=== PATIENT | male | born 1955 | race Caucasian/White ===

== ENCOUNTER 2017-10-24 14:47 | Observation (INO) | payer BC, SELFPAY ==
[2017-10-24 15:25] LABS: #Basophils 0.1 thou/uL (0.0-0.2); #Eosinphils 0.1 thou/uL (0.0-0.7); #Lymphocytes 2.6 thou/uL (1.20-3.40); #Monocytes 0.6 thou/uL (0.11-0.59); #Neutrophils 6.6 thou/uL (1.40-6.50); %Basophils 0.7 % (0.0-1.0); %Eosinophils 1.4 % (0.0-10.0); %Lymphocytes 25.9 % (21.0-51.0); Mean Corpuscular HGB CONC 35.6 g/dL (32.0-36.0); Mean Corpuscular Hemoglobin 32.4 pg (27.0-31.0); Mean Platelet Volume 7.1 fL (7.4-10.4); Platelet Count 202 thou/uL (130-400); RBC Distribution Width 11.3 % (11.5-14.5); Red Blood Cell (RBC) Count 4.93 mill/uL (4.70-6.10); White Blood Cell (WBC) Count 9.9 thou/uL (4.8-10.8)
--- NOTE | 2017-10-24 15:47 | CT ---
CT OF THE BRAIN WITHOUT CONTRAST: Date: 10/24/17 COMPARISON: None. HISTORY: Left-sided tingling and numbness that began 1 week ago. Altered mental status. TECHNIQUE: Multiple contiguous axial images were obtained in a CT of the brain without contrast. FINDINGS: The brain is normal in morphology and attenuation without focal lesions or confluent areas of infarct ion. There is no evidence of hydrocephalus, intracranial hemorrhage, or extra-axial fluid collection. The calvarium and overlying soft tissues are unremarkable. The visualized paranasal sinuses and masto id air cells are well aerated. IMPRESSION: No evidence of acute intracranial abnormality. POS: [facility]
[2017-10-24 15:49] LABS: ALT (SGPT) 16 U/L (8-55); AST (SGOT) 14 U/L (5-34); Albumin 4.7 g/dL (3.4-4.8); Alkaline Phosphatase 71 U/L (40-150); Anion Gap 15 mmol/L (10-20); BUN (Urea Nitrogen) 13 mg/dL (8.4-25.7); Bilirubin, Total 0.3 mg/dL (0.2-1.2); Calc. Creatinine Clearance 0 mL/min (70-130); Calcium 9.5 mg/dL (7.8-10.44); Carbon Dioxide 23 mmol/L (23-31); Chloride 106 mmol/L (98-107); Estimated GFR-MDRD 80; Globulin 2.8 g/dL (2.4-3.5); Glucose 121 mg/dL (80-115); Potassium 4.2 mmol/L (3.5-5.1); Protein, Total 7.5 g/dL (5.8-8.1); Sodium 140 mmol/L (136-145)
--- NOTE | 2017-10-24 15:49 | RAD ---
SINGLE VIEW OF THE CHEST: COMPARISON: None. HISTORY: Altered mental status. FINDINGS: Two views of the chest show normal sized cardiomediastinal silhouette. There is no evidence of consol idation, mass, or pleural effusion. The bones are unremarkable. IMPRESSION: No evidence of acute cardiopulmonary disease. POS: [facility]
[2017-10-24 15:53] LABS: CKMB 1.2 ng/mL (0-6.6); Troponin I Less than 0.010 ng/mL (< 0.028)
[2017-10-24 16:00] LABS: Bilirubin Negative (Negative); Blood, Urine Negative (Negative); Clarity CLEAR (Clear); Glucose, Urine (Dipstick) Negative (Negative); Leukocyte Negative (Negative); Nitrite Negative (Negative); Protein, Urine (Dipstick) Trace mg/dL (Neg-Trace); Specific Gravity, Urine 1.016 (1.002-1.036); Urobilinogen 0.2 mg/dL (0.2-1.0); pH, Urine 5.5 (5.0-9.0)
[2017-10-24 20:05] VITALS: BMI 28.9
--- NOTE | 2017-10-24 23:38 | ULT ---
BILATERAL CAROTID DUPLEX ULTRASOUND WITH SPECTRAL ANALYSIS AND COLOR FLOW EVALUATION 10/24/17 HISTORY: Left sided numbness, TIA. FINDINGS: Thompson scale, color flow, doppler evaluation, with spectral analysis of the bilateral carotid arteries is performed with 2D imaging. No significant atherosclerotic plaque is seen within the bilateral inte rnal carotid arteries, but there is mild intimal thickening in the common carotid arteries bilaterall y. There is less than 50% maximal stenosis in the bilateral internal carotid arteries according to the p eak systolic velocities in the ICA/CCA ratios. Peak systolic velocity in the right ICA is 81.3 cm/s w ith an ICA/CCA ratio of 0.67. Peak systolic velocity in the left ICA is 85.2 cm/s with an ICA/CCA rat io of 0.57. Antegrade flow is demonstrated in the vertebral arteries bilaterally. IMPRESSION: No hemodynamically significant stenosis in the bilateral internal carotid arteries. POS: [facility]
[2017-10-24] MEDS ORDERED: Acetaminophen 325 MG TAB PO SCH (23:59)
[2017-10-25] MEDS ORDERED: Acetaminophen 325 MG TAB PO PRN (01:15)
[2017-10-25] MEDS ORDERED: Dextrose 5% in Water 1,000 ML IV PRN (03:52)
[2017-10-25] MEDS ORDERED: HumaLOG 300 UNITS/3 ML VIAL SC PRN (03:52)
[2017-10-25] MEDS ORDERED: Dextrose 50% Abboject 50 ML SYRINGE SLOW IVP PRN (03:52)
[2017-10-25] MEDS ORDERED: Ondansetron HCl/PF 4 MG/2 ML Vial IVP PRN (03:54)
--- NOTE | 2017-10-25 04:43 | HP ---
CODE STATUS: FULL CODE. PRIMARY CARE PHYSICIAN: Dr. Granado. CHIEF COMPLAINT: Left-sided weakness. HISTORY OF PRESENT ILLNESS: This is a 62-year-old male patient. Patient has past medical history of diabetes type 2, hyperlipidemia, hypertension. Patient came to the hospital after having symptoms f or about 1 week. Symptoms have been on and off and has been reported as having weakness and tingling of the left sided. Patient reported that symptoms are triggered when he does any activity and impro ernesto when he is rest. He has also noticed that the symptoms are present when the blood pressure goes very high. Symptoms are reported as moderate. REVIEW OF SYSTEMS: Constitutional: No fever, no chills. Generalized weakness. Respiratory: No co ugh, no sputum production, or shortness of breath. Cardiovascular: No chest pain, palpitation, or s hortness of breath. Gastrointestinal: No nausea, vomiting, diarrhea, or abdominal pain. CAR GROOMER: No d izziness or headache. Patient has left-sided tingling, numbness. Genitourinary: No burning on urin ation. Extremities: No leg swelling. All other systems were reviewed and negative except for the f indings as mentioned above. PAST MEDICAL HISTORY: Hypertension, diabetes, and high cholesterol. PAST SURGICAL HISTORY: Appendectomy. PSYCHIATRIC HISTORY: No previous psychiatric history. SOCIAL HISTORY: Patient lives with . Patient drinks every day, less than 5 drinks per day. DRUG ALLERGIES: No known drug allergies. REPORTED MEDICATIONS: Please see medication reconciliation for details. PHYSICAL EXAMINATION: VITAL SIGNS: On presentation blood pressure 183/100 with heart rate 75, respiratory rate was 16, tem perature 98.8, oxygen saturation 97 on room air. GENERAL APPEARANCE: The patient is alert, oriented, not in any acute distress. HEENT: Eyes, normal conjunctivae, moist oral mucosa, anicteric. NECK: No JVD. RESPIRATORY: Bilateral air entry. No rales, no wheezes. Symmetric expansion. CARDIOVASCULAR: Normal rate, regular rhythm. No murmur, no gallop, no edema. ABDOMEN: Soft, normal bowel sounds. MUSCULOSKELETAL: Baseline range of motion and strength. No tenderness. SKIN: Warm and intact. No pallor, no rash. No redness. NEUROLOGIC: Patient has left-sided weakness and tingling, that is minimal during examination. Basel ine speech. Cranial nerve seems to be intact. PSYCHIATRIC: Patient is in good mood. No anxiety, oriented, optimal judgment. IMAGING STUDIES: EKG was reviewed, discussed with performing physician. Patient has normal sinus rh ythm at a rate of 82, occasional PVCs, and PACs. No evidence of any acute ischemic event. Cardiolog y was reviewed. The patient has negative CT head. Normal chest x-ray. ASSESSMENT AND PLAN: The patient will be placed in the hospital with the following medical problems: 1. Transient ischemic attack, rule out stroke, patient has symptoms on and off. They get better, th ey get worse. We will do a stroke protocol, to look for etiology for patient's symptoms. We will tr eat accordingly. 2. Uncontrolled hypertension with systolic 183/100 on presentation. We will reconcile home medicati ons. We will allow permissive hypertension in the first 24 hours. 3. Uncontrolled diabetes, blood sugar 121, repeat 153, reconciled home medications, place the patien t on sliding scale. 4. Deep venous thrombosis prophylaxis.
[2017-10-25 05:47] LABS: Cardiac Risk 4.9 (Less than 4.5)
[2017-10-25] MEDS ORDERED: Lorazepam 2 MG/ML VIAL SLOW IVP SCH ×2 (08:45→11:30)
[2017-10-25] MEDS ORDERED: Enoxaparin Sodium 40 MG/0.4 ML SYRINGE SC SCH (09:00)
[2017-10-25] MEDS ORDERED: Aspirin 325 mg Enteric Coated Tablet PO SCH (09:00)
[2017-10-25] MEDS ORDERED: Lisinopril 20 MG TAB PO SCH (09:00)
--- NOTE | 2017-10-25 10:48 | MRI ---
NONCONTRAST ENHANCED MRI IMAGES OF BRAIN: HISTORY: Left-sided tingling and numbness which began 1 week ago. FINDINGS: Multiplanar, multisequence, noncontrast-enhanced MRI images of the brain obtained. Images demonstrate age-appropriate cortical atrophy. There is fluid seen in the left mastoid air cells and the left middle ear. No evidence of acute intracranial masses or lesions seen. No evidence of diffusion restriction seen. No evidence of intracranial hemorrhage is seen. Normal flow voids seen in the major intracranial vessels. IMPRESSION: Left middle ear and mastoid fluid. POS: [facility]
--- NOTE | 2017-10-25 12:24 | CON ---
DATE OF CONSULTATION: 10/25/2017 CHIEF COMPLAINT: Numbness of the left face and arm. 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 He reports with that infection, occasionally, he does get some facial rash as well and there was at one time he had drainage with black stuff coming out of his left ear and he had recurrent symptoms with it and developed chronic pain in the ear. The patient reports he was at home last Saturday when he felt numbness of the left face and arm and leg and was tingling and he also had left abdominal pain recently and he thought it was due to constipation. The patient waited thinking he may have to go to the doctors in the following Saturday as well. He had more symptoms. He went ahead and saw his ENT physician and he has been on antibiotics for the last 1 week and he saw his doctor yesterday who told him he could not have numbness of face, arm, and leg due to the inner ear infection and sent him to the ER. The patient also has a neurologist, Dr. Darden , who has been seeing him for his chronic neck problems. The patient has had increased pain in the neck area and he has prior history of C-spine disease. No history of any dizziness or weakness on the left side. No vision problems. PREVIOUS MEDICAL HISTORY: Patient has chronic inner ear infection and has neck disease as well. He has hypertension, diabetes, and hypercholesterolemia. PAST SURGICAL HISTORY: He had an appendectomy and neck surgery 2 years ago with plates and screws placed in the neck area for chronic neck disease. SOCIAL HISTORY: Lives with his . He drinks one shot per day and he has done that for years. Does not smoke. Does not exceed that amount of alcohol per day. ALLERGIES: No allergies. CURRENT MEDICATIONS: At home he is on antibiotics and his current medication list at the hospital is reviewed. He is on atorvastatin, Lovenox, glucagon, and Humalog insulin sliding scale. He is also on lisinopril 20 mg per day. LABORATORY DATA: His laboratory workup, so far, white count is 99.9, hemoglobin 16, hematocrit 44.8, platelet count 202, glucose 122, triglycerides 288, cholesterol 194 and TSH 2.3. Sodium 140, potassium 4.2, chloride 106, bicarbonate 23, anion gap 15, BUN 13, creatinine 0.95. IMAGING STUDIES: MRI of the brain was negative for any acute lesions, but this MRI was done without contrast and there was also left middle ear mastoid fluid which probably is chronic. Carotid Doppler was negative and his echocardiogram is pending and his prior C-spine MRI in 2016 showed prior to his OP neck surgery showed C4-5 and C5-6 stenosis and bilateral neural foraminal narrowing. REVIEW OF SYSTEMS: PULMONARY: Normal. CARDIAC: Normal. GASTROINTESTINAL: Positive for left upper quadrant abdominal pain recently. GENITOURINARY: No frequency of urination or dysuria. NEUROLOGIC: Positive for neck pain on and off and tingling of the left face, arm and leg, along with numbness of the left face, left lower extremity and upper extremity and no weakness or dizziness reported. ENT: Left ear infection with discomfort in the left ear. HEMATOLOGIC: Normal. DERMATOLOGIC: Normal. PHYSICAL EXAMINATION: VITAL SIGNS: Blood pressure 139/91, pulse is 71, temperature 97.3, respiratory rate 16. GENERAL APPEARANCE: Well-built, well-nourished gentleman who is comfortable in bed. CHEST: Clear vesicular breathing. CARDIOVASCULAR: S1, S2 heard, no murmurs. ABDOMEN: Soft, nontender, no organomegaly noted. NEUROLOGICAL: High intellectual functions, normal orientation to time, place and person, appropriate in conversation. Cranial nerves II-XII; normal pupil reaction. Normal extraocular movements bilaterally. No facial asymmetry noted. Tongue midline, no atrophy noted. Normal sensation of face except left face numbness and hearing decreased in the left ear. Fundus exam normal. Tongue midline, no atrophy noted. Motor examination: Bulk normal, tone normal , strength is 5/5 in upper and lower extremities. Muscle groups tested are iliopsoas, hamstrings, quadriceps, ankle dorsiflexion, plantar flexion, deltoid , biceps, triceps, wrist extension/flexion, finger extension and flexion bilaterally. Deep tendon reflexes are 2+ throughout in upper and lower extremities. Sensory examination: Decreased sensation to touch on the left side in the upper and lower extremities both proximally and distally. He has normal vibration. Sensation and normal proprioception bilaterally. Cerebellar examination; normal finger to nose and [id number]. Gait not tested. IMPRESSION AND PLAN: Patient is a 62-year-old gentleman with sudden onset of left-sided face, arm and leg numbness starting last Saturday. He did not come to the ER immediately, but went to seek care with his ENT doctor thinking everything is linked to his inner ear infection. He also reports he got up on his truck and he fell down because he could not balance his leg. He has history of chronic inner ear infection, prior history of C-spine surgery for C4, C5, C6 stenosis. Examination shows mild numbness in the left arm and leg as well as face. Rest of the neurological examination is normal. Differential diagnosis includes possible C-spine disease vs intracranial inflammation. I did not see a contrast MRI of the brain. PLAN 1. We need MRI of the neck to see if there is any stenosis or neural foraminal stenosis of the left side 2. If MRIs are negative, patient can be discharged to the care of Dr. Darden and his ENT doctor. ALICE
--- NOTE | 2017-10-25 12:31 | PDOC.PN ---
- Subjective Encounter Start Date: 10/25/17 Encounter Start Time: 10:00 Subjective: still has some tingling and numbness to left upper and lower extre -: no weakness as such, is amb in room -: no trouble swallowing or fever - Objective Resuscitation Status: Resuscitation Status FULL:Full Resuscitation MAR Reviewed: Yes Vital Signs & Weight: Vital Signs (12 hours) Temp Pulse Resp BP BP Pulse Ox 10/25/17 11:52 97.3 F L 71 16 139/91 H 95 10/25/17 08:40 97.8 F 64 16 10/25/17 08:23 139/89 10/25/17 07:57 97.8 F 64 16 139/89 95 10/25/17 03:32 97.5 F L 63 20 131/82 95 Weight Admit Weight 184 lb 8 oz Weight 184 lb 8 oz I&O: 10/24/17 10/25/17 10/26/17 06:59 06:59 06:59 Intake Total 450 Balance 450 Result Diagrams: 10/24/17 15:17 10/24/17 15:17 Additional Labs: Accuchecks 10/25/17 10/25/17 10/24/17 10:44 05:05 20:19 POC Glucose 122 H 149 H 153 H Phys Exam - Physical Examination HEENT: PERRLA, moist MMs Neck: no JVD, supple Respiratory: no wheezing, no rales Cardiovascular: RRR, no significant murmur Gastrointestinal: soft, non-tender, positive bowel sounds Musculoskeletal: no edema, pulses present Neurological: moves all 4 limbs no motor deficits Psychiatric: normal affect, A&O x 3 Dx/Plan (1) TIA (transient ischemic attack) Code(s): G45.9 - TRANSIENT CEREBRAL ISCHEMIC ATTACK, UNSPECIFIED Status: Acute (2) HTN (hypertension) Code(s): I10 - ESSENTIAL (PRIMARY) HYPERTENSION Status: Chronic Qualifiers: Hypertension type: essential hypertension Qualified Code(s): I10 - Essential (primary) hypertension (3) DM type 2 (diabetes mellitus, type 2) Status: Chronic Qualifiers: Diabetes mellitus continuous churn buttermaker insulin use: without continuous churn buttermaker use Diabetes mellitus complication status: with unspecified complications Qualified Code(s) : E11.8 - Type 2 diabetes mellitus with unspecified complications (4) Dyslipidemia Code(s): E78.5 - HYPERLIPIDEMIA, UNSPECIFIED Status: Chronic - Plan MRI brain no ac cva, d/w Dr.Thomas Higginbotham -: is going for MRI with contrast of c.spine and brain -: on asp, lipitor, lisinopril -: may dc home if MRI's and echo dont show any ac changes. * . Review of Systems - Medications/Allergies Allergies/Adverse Reactions: Allergies Allergy/AdvReac Type Severity Reaction Status Date / Time No Known Allergies Allergy Verified 10/24/17 23:44 Medications: Current Medications Acetaminophen (Tylenol) 650 mg PO Q6H PRN PRN Reason: Headache/Fever or Pain Last Admin: 10/25/17 08:38 Dose: 650 mg Aspirin (Ecotrin) 325 mg PO DAILY [facility] Last Admin: 10/25/17 08:23 Dose: 325 mg Atorvastatin Calcium (Lipitor) 40 mg PO HS [facility] Dextrose/Water (Dextrose 50%) 25 gm SLOW IVP PRN PRN PRN Reason: Hypoglycemia Enoxaparin Sodium (Lovenox) 40 mg SC 0900 [facility] Last Admin: 10/25/17 08:23 Dose: 40 mg Glucagon (Glucagon) 1 mg IM PRN PRN PRN Reason: Hypoglycemia Dextrose/Water (D5w) 1,000 mls @ 0 mls/hr IV .Q0M PRN; As Directed PRN Reason: Hypoglycemia Insulin Human Lispro (Humalog) 0 units SC .MILD SLIDING SCALE PRN PRN Reason: Mild Correctional Scale Lisinopril (Zestril) 20 mg PO DAILY [facility] Last Admin: 10/25/17 08:23 Dose: 20 mg Lorazepam (Ativan) 1 mg SLOW IVP WILLCALL [facility] Stop: 10/26/17 11:31 Last Admin: 10/25/17 11:51 Dose: 1 mg Ondansetron HCl (Zofran) 4 mg IVP Q6H PRN PRN Reason: Nausea/Vomiting
--- NOTE | 2017-10-25 13:21 | MRI ---
CERVICAL SPINE MRI WITH AND WITHOUT CONTRAST: INDICATION: Numbness in left arm, left leg, and paresthesias of the face. FINDINGS: There is multilevel susceptibility from anterior metallic fusion spanning the C4 through C6 segment. No acute marrow edema. Spinal alignment is maintained. The cervical spinal cord maintains appropri ate caliber and signal intensity. No pathologic intramedullary enhancement. No significant central canal stenosis of C1-2. C2-3: There is left side uncinate process and facet hypertrophy with mild narrowing of the left neur al foramen. No significant central canal or right foraminal stenosis. C3-4: Disk-osteophyte complex is present more pronounced to the right along with prominent right unc inate process hypertrophy. This produces narrowing of the right subarticular zone as well as moderat e right foraminal stenosis. There is mild narrowing of the left neural foramen. C4-5: There is no significant central canal stenosis. Uncinate process hypertrophy is present with mild [id number] neural foraminal narrowing. C5-6: Broad-based osteophyte ridge is present with mild effacement of the ventral thecal sac. There is bilateral uncinate process hypertrophy with moderate bilateral neural foraminal stenosis. C6-7: There is a broad-based disk-osteophyte with mild central canal stenosis. Moderate to severe l eft and moderate right neural foraminal stenosis is present. C7-T1: No significant compromise of the central canal or neural foramina. IMPRESSION: 1. 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 2. No pathologic intramedullary enhancement. POS: [facility]
--- NOTE | 2017-10-25 13:48 | MRI ---
BRAIN MRI WITH CONTRAST: Date: 10/25/17 Reference made to MRI brain earlier same date. CLINICAL INDICATION: Numbness, fungal infection, left ear. FINDINGS: There is no evidence of pathologic intra-axial enhancement, mass effect, midline shift, or ventriculo megaly. There is enhancement within the mastoid segment of the left temporal bone at the site of mast oid fluid on preceding noncontrast brain MRI. IMPRESSION: 1. No acute intracranial abnormality. 2. Evidence of left mastoiditis. POS: [facility]
[2017-10-25] MEDS ORDERED: Gadobenate Dimeglumine 529 MG/1 ML (20ML VIAL) ONE (14:47)
[2017-10-25 15:33] VITALS: BP 140/88; TEMP 98.6
[2017-10-25] MEDS ORDERED: Atorvastatin Calcium 40 MG TAB PO SCH (21:00)
--- NOTE | 2017-10-27 20:37 | DIS ---
DATE OF ADMISSION: 10/25/2017 DATE OF DISCHARGE: 10/25/2017 DISCHARGE DISPOSITION: To home. PRIMARY DISCHARGE DIAGNOSES: Left upper extremity and lower extremity tingling and numbness with no evidence of cerebrovascular accident. SECONDARY DISCHARGE DIAGNOSES: Hypertension, diabetes mellitus type 2, dyslipidemia. PROCEDURES DONE DURING HOSPITALIZATION: CT brain showed no acute intracranial abnormality. Carotid Doppler showed no hemodynamically significant stenosis. MRI C-spine with contrast done showed multil evel degenerative changes. These are postoperative in nature. No pathologic intramedullary enhancem ent was seen. MRI brain with contrast showed no acute intracranial abnormality. There is evidence o f left mastoiditis. Echo with 2D Doppler showed an EF of 55%-60%, H&H 16 and 44, platelet count 202. Total cholesterol 194, triglycerides 288, LDL 96, HDL 40. One set of troponin is negative. DISCHARGE MEDICATIONS: Aspirin 325 mg p.o. daily, Lipitor 40 mg p.o. at bedtime, glipizide extended release 5 mg p.o. q.a.m., lisinopril 20 mg daily. ALLERGIES: No known drug allergies. DISCHARGE PLAN: The patient to follow up with primary care physician in 1 week. INPATIENT CONSULT: Dr. Anahy Fisher for Neurology. BRIEF COURSE DURING HOSPITALIZATION: The patient initially got admitted with complaints of left-side d weakness. It is more of paraesthesias with tingling and numbness. In view of this, he was placed as transient ischemic attack versus stroke on the stroke unit. He has had a complete workup includin g MRI of brain and C-spine with contrast done, which have not revealed any acute pathology to explain his tingling and numbness. He remained hemodynamically and neurologically stable. The patient is a mbulating and is wanting to go home. His echo has not revealed any acute valvular issues and his eje ction fraction is normal. He is hemodynamically stable and will be shortly discharged home. The [facility] has been advised to follow up with Dr. Thorpe, his neurosurgeon, in 4 weeks. Please see a face- to-face documentation on [facility] for the day of discharge.
== END 2017-10-25 17:45 | disposition home or self-care (01) ==
LOC: ERS 14:47 → 2SE 17:47
PROVIDERS: ADMIT Internal Medicine; ATTEND Internal Medicine
DX: R20.0 Anesthesia of skin (principal); R20.2 Paresthesia of skin; I10 Essential (primary) hypertension; E11.9 Type 2 diabetes mellitus without complications; E78.5 Hyperlipidemia, unspecified; Z79.82 Long term (current) use of aspirin; Z79.4 Long term (current) use of insulin; Z79.899 Other long term (current) drug therapy
CPT/HCPCS: 36415; 36416; 70450; 70551; 70552; 71045; 72156; 80053; 80061; 81003; 82140; 82553; 84443; 84484; 85025; 93005; 93306; 93880; 96374; 96376; A9579; G0378; J1650; J2060

== ENCOUNTER 2018-12-26 05:58 | Day surgery (SDC) | payer MEDICARE ==
[2018-12-26] MEDS ORDERED: Lidocaine 1% (PF) 30 ML VIAL ONE (07:53)
[2018-12-26] MEDS ORDERED: Heparin 0 ML ONE (07:53)
[2018-12-26] MEDS ORDERED: Heparin 10,000 UNITS/1 ML VIAL ONE (08:07)
[2018-12-26] MEDS ORDERED: Nitroglycerin 100MG/250ML BOT 250 ML ONE (08:07)
[2018-12-26] MEDS ORDERED: Verapamil 5 MG/2 ML VIAL ONE (08:07)
[2018-12-26] MEDS ORDERED: Midazolam HCl 2 mg/2 ml Vial ONE (08:19)
[2018-12-26] MEDS ORDERED: Fentanyl 100 MCG/2 ML VIAL ONE (08:19)
--- NOTE | 2018-12-26 08:59 | RAD ---
PORTABLE CHEST: HISTORY: Preop. COMPARISON: 10/24/2017 study. FINDINGS: Heart size within normal limits with atherosclerotic change of the aorta. The lungs are clear of inf iltrates. IMPRESSION: No active intrathoracic disease. POS: [facility]
[2018-12-26] MEDS ORDERED: Iopamidol 370 76% 100 ML VIAL ONE (09:52)
== END 2018-12-26 11:40 | disposition home or self-care (01) ==
LOC: CCL 05:58
PROVIDERS: ATTEND Internal Medicine Cardiovascular Disease
PROC: 4A023N7 Measurement of Cardiac Sampling and Pressure, Left Heart, Percutaneous Approach (ICD-10-PCS; principal; 2018-12-26)
PROC: B2051ZZ Plain Radiography of Left Heart using Low Osmolar Contrast (ICD-10-PCS; 2018-12-26)
DX: R07.9 Chest pain, unspecified (principal); I10 Essential (primary) hypertension; E78.5 Hyperlipidemia, unspecified; Z88.5 Allergy status to narcotic agent
CPT/HCPCS: 71045; 93005; 93010; 93458; 99152; C1769; J1644; J2001; J2250; J3010; Q9967

== ENCOUNTER 2019-12-09 09:30 | Outpatient (CLI) | payer MEDICARE, OTHER ==
--- NOTE | 2019-12-09 15:43 | MRI ---
MRI OF LEFT THIGH WITH AND WITHOUT CONTRAST: HISTORY: Injury. Pain. Stranding of left quadriceps muscle initial encounter. COMPARISON: Radiograph of 12/01/2019. FINDINGS: BONES: No fracture. No malalignment. No abnormal marrow edema or cortical edema. MUSCLES: Intramuscular deglovingq injury, low-grade, between the bipinate component of the rectus femoris musc les surrounding the indirect head and the adjacent inopinate rectus femoris direct head musculature. Distal to this is a full-thickness tear of the conjoined tendon with approximately a 5 cm gap. The vastus intermedius lateralis and medialis are intact. The distal conjoined quadriceps tendon is intact. Hamstring tendons are intact. No abnormal enhancing mass. Only a small volume hematoma. IMPRESSION: 1. Two separate injuries of the left rectus femoris. The 1st is an intramuscular degloving injury o f the rectoris femoris between the indirect head and direct heads more proximal thigh and the second is a separate full thickness rectus femoris tendon tear at the mid thigh with a 5 cm gap with intact distalmost quadriceps tendon. 2. No abnormal enhancing mass. 3. Intact vastus intermedius lateralis and medialis. 4. Intact hamstring tendons. 5. No acute fracture. POS: [facility]
== END 2019-12-09 09:31 | disposition home or self-care (01) ==
LOC: SCSMRI 09:30
PROVIDERS: ATTEND Orthopaedic Surgery
DX: S76.112A Strain of left quadriceps muscle, fascia and tendon, initial encounter (principal); S76.102A Unspecified injury of left quadriceps muscle, fascia and tendon, initial encounter
CPT/HCPCS: 82565

== ENCOUNTER 2024-03-02 12:50 | Inpatient (IN) | payer MEDICARE ==
[2024-03-02] MEDS ORDERED: Boostrix 0.5 ML (Tdap) VIAL (>/=7 yrs of age) ONE (12:57)
[2024-03-02 13:30] LABS: #Basophils 0.08 10x3/uL (0.0-0.2); %Basophils 0.7 % (0.0-1.0); %Eosinophils 1.4 % (0.0-10.0); %Lymphocytes 18.7 % (21.0-51.0); %Monocytes 6.6 % (0.0-10.0); %Neutrophils 72.2 % (42.0-75.0); Hematocrit 39.1 % (42.0-52.0); Hemoglobin 13.3 g/dL (14.0-18.0); Mean Corpuscular Hemoglobin 30.7 pg (27.0-31.0); Mean Corpuscular Volume 90.3 fL (78.0-98.0); Platelet Count 194 10x3/uL (130-400); RBC Distribution Width 12.6 % (11.5-14.5); Red Blood Cell (RBC) Count 4.33 mill/uL (4.70-6.10)
[2024-03-02 14:00] LABS: INR-International Normal Ratio 1.2; Prothrombin Time 15.3 sec (12.0-14.7)
[2024-03-02 14:01] LABS: PTT 25.5 sec (22.9-36.1)
[2024-03-02 14:02] LABS: ALT (SGPT) 14 U/L (8-55); AST (SGOT) 17 U/L (5-34); Albumin 3.4 g/dL (3.4-4.8); Alkaline Phosphatase 68 U/L (40-110); Anion Gap 15 mmol/L (10-20); BUN (Urea Nitrogen) 19 mg/dL (8.4-25.7); Bilirubin, Total 0.3 mg/dL (0.2-1.2); Calc. Creatinine Clearance 0 mL/min (70-130); Calcium 8.4 mg/dL (7.8-10.44); Carbon Dioxide 18 mmol/L (23-31); Chloride 106 mmol/L (98-107); Estimated GFR 71; Globulin 2.9 g/dL (2.4-3.5); Glucose 199 mg/dL (80-115); Lipase 18 U/L (8-78); Potassium 4.4 mmol/L (3.5-5.1); Protein, Total 6.3 g/dL (5.8-8.1); Sodium 135 mmol/L (136-145)
[2024-03-02 14:05] LABS: Troponin I Less than 0.010 ng/mL (< 0.028)
[2024-03-02] MEDS ORDERED: Ondansetron PF 4 MG/2 ML Vial ONE (14:10)
[2024-03-02] MEDS ORDERED: fentaNYL 50 mcg/mL 1 mL Vial ONE ×2 (14:10→15:49)
[2024-03-02] MEDS ORDERED: Lidocaine 1% w/Epinephrine 1:100K 20 ML VIAL ONE (15:01)
[2024-03-02] MEDS ORDERED: Acetaminophen 325 MG TAB PO PRN (15:16)
[2024-03-02] MEDS ORDERED: Dextrose 5% in Water 1,000 ML IV PRN (15:16)
[2024-03-02] MEDS ORDERED: Dextrose 50% Abboject 50 ML SYRINGE SLOW IVP PRN (15:16)
[2024-03-02] MEDS ORDERED: Glucagon 1 MG/ML KIT IM PRN (15:16)
[2024-03-02] MEDS ORDERED: Insulin Lispro 100 UNIT/ML 10 ML VIAL SC PRN (15:16)
[2024-03-02 17:14] VITALS: BMI 27.9
[2024-03-02] MEDS: Ketorolac Tromethamine 30 MG (1 mL) VIAL IVP SCH (17:15)
[2024-03-02] MEDS: Morphine 2 MG/ML VIAL SLOW IVP PRN (18:35)
[2024-03-02 19:07] LABS: #Basophils 0.04 10x3/uL (0.0-0.2); #Eosinophils Less than 0.03 10x3/uL (0.0-0.7); %Basophils 0.3 % (0.0-1.0); %Eosinophils 0.1 % (0.0-10.0); %Lymphocytes 12.2 % (21.0-51.0); %Neutrophils 79.1 % (42.0-75.0); Hematocrit 35.3 % (42.0-52.0); Hemoglobin 11.9 g/dL (14.0-18.0); Mean Corpuscular HGB CONC 33.7 g/dL (32.0-36.0); Mean Corpuscular Hemoglobin 30.3 pg (27.0-31.0); Mean Corpuscular Volume 89.8 fL (78.0-98.0); Mean Platelet Volume 9.6 fL (7.4-10.4); Platelet Count 177 10x3/uL (130-400); RBC Distribution Width 12.5 % (11.5-14.5); Red Blood Cell (RBC) Count 3.93 mill/uL (4.70-6.10)
[2024-03-02] MEDS: Ipratropium/Albuterol 3 ML NEB NEB SCH (19:17)
[2024-03-02 19:20] LABS: Anion Gap 15 mmol/L (10-20); BUN (Urea Nitrogen) 19 mg/dL (8.4-25.7); Calc. Creatinine Clearance 94 mL/min (70-130); Calcium 8.3 mg/dL (7.8-10.44); Carbon Dioxide 16 mmol/L (23-31); Estimated GFR 93; Glucose 165 mg/dL (80-115); Potassium 3.6 mmol/L (3.5-5.1)
[2024-03-02 19:26] LABS: Troponin I Less than 0.010 ng/mL (< 0.028)
[2024-03-02] MEDS: Acetaminophen 500 MG TAB PO SCH (19:27)
[2024-03-02] MEDS: Famotidine/PF 20 mg/2ml Vial SLOW IVP SCH (20:23)
[2024-03-02] MEDS: traMADol HCl 50 MG TAB PO SCH (20:23)
[2024-03-02] MEDS: Methocarbamol 500 MG TAB PO SCH (20:24)
[2024-03-02] MEDS: traMADol HCl 50 MG TAB PO PRN (20:24)
[2024-03-02] MEDS: Ondansetron PF 4 MG/2 ML Vial IVP PRN (20:41)
[2024-03-02] MEDS: D5 1/2 NS w/20 mEq KCL 1,000 ML IV SCH (20:45)
[2024-03-02 20:49] LABS: Chloride 109 mmol/L (98-107); Sodium 136 mmol/L (136-145)
[2024-03-03] MEDS: Acetaminophen 325 MG TAB PO SCH (00:59)
[2024-03-03] MEDS: Ketorolac Tromethamine 30 MG (1 mL) VIAL IVP SCH (00:59)
[2024-03-03 05:53] LABS: #Basophils 0.05 10x3/uL (0.0-0.2); %Basophils 0.6 % (0.0-1.0); %Eosinophils 0.5 % (0.0-10.0); %Lymphocytes 21.4 % (21.0-51.0); %Monocytes 12.3 % (0.0-10.0); Hematocrit 32.9 % (42.0-52.0); Hemoglobin 10.8 g/dL (14.0-18.0); Mean Corpuscular HGB CONC 32.8 g/dL (32.0-36.0); Mean Corpuscular Hemoglobin 30.5 pg (27.0-31.0); Mean Corpuscular Volume 92.9 fL (78.0-98.0); Mean Platelet Volume 10.3 fL (7.4-10.4); Platelet Count 162 10x3/uL (130-400); Red Blood Cell (RBC) Count 3.54 mill/uL (4.70-6.10)
[2024-03-03 06:41] LABS: Anion Gap 13 mmol/L (10-20); BUN (Urea Nitrogen) 21 mg/dL (8.4-25.7); CK (CPK) 534 U/L (30-200); Calc. Creatinine Clearance 87 mL/min (70-130); Calcium 7.5 mg/dL (7.8-10.44); Carbon Dioxide 18 mmol/L (23-31); Chloride 111 mmol/L (98-107); Estimated GFR 88; Glucose 161 mg/dL (80-115); Potassium 4.4 mmol/L (3.5-5.1); Sodium 138 mmol/L (136-145)
[2024-03-03] MEDS: HYDROcodone/Acetaminophen 7.5/325 mg Tablet PO PRN ×2 (09:23→21:36)
[2024-03-03] MEDS ORDERED: Morphine 4 MG/ML VIAL SLOW IVP PRN (09:47)
[2024-03-03] MEDS: Polyethylene Glycol 3350 17 GM Packet PO SCH ×2 (12:28→17:08)
[2024-03-03] MEDS: Senokot S 8.6-50 MG TAB PO SCH (12:30)
[2024-03-03] MEDS: Morphine 4 MG/ML VIAL SLOW IVP SCH (17:08)
[2024-03-03] MEDS: Tamsulosin HCl 0.4 MG CAP PO SCH (21:36)
[2024-03-03] MEDS: ALPRAZolam 0.25 MG TAB PO SCH (21:36)
[2024-03-04] MEDS ORDERED: D5 1/2 NS w/20 mEq KCL 1,000 ML BAG ONE (15:50)
[2024-03-04] MEDS ORDERED: HYDROcodone/Acetaminophen 7.5/325 mg Tablet ONE ×2 (17:48→23:14)
[2024-03-04] MEDS ORDERED: Acetaminophen 325 MG TAB ONE ×2 (17:48→23:14)
[2024-03-04] MEDS ORDERED: Apixaban 5 MG TAB ONE (21:13)
[2024-03-04] MEDS ORDERED: Methocarbamol 500 MG TAB ONE (21:13)
[2024-03-04] MEDS ORDERED: Senokot S 8.6-50 MG TAB ONE (21:13)
[2024-03-04] MEDS ORDERED: Tamsulosin HCl 0.4 MG CAP ONE (21:13)
[2024-03-04] MEDS ORDERED: ALPRAZolam 0.25 MG TAB ONE (21:13)
[2024-03-05] MEDS ORDERED: D5 1/2 NS w/20 mEq KCL 1,000 ML BAG ONE ×3 (00:05→20:00)
[2024-03-05] MEDS ORDERED: Acetaminophen 325 MG TAB ONE ×3 (05:26→21:34)
[2024-03-05] MEDS ORDERED: Methocarbamol 500 MG TAB ONE ×4 (09:09→22:32)
[2024-03-05] MEDS ORDERED: Apixaban 5 MG TAB ONE ×2 (09:09→21:34)
[2024-03-05] MEDS ORDERED: Lidocaine 4% Patch ONE (09:09)
[2024-03-05] MEDS ORDERED: Polyethylene Glycol 3350 17 GM Packet ONE (09:09)
[2024-03-05] MEDS ORDERED: Senokot S 8.6-50 MG TAB ONE ×2 (09:09→21:34)
[2024-03-05] MEDS ORDERED: Pantoprazole DR 40 MG TAB ONE (09:09)
[2024-03-05] MEDS ORDERED: HYDROcodone/Acetaminophen 7.5/325 mg Tablet ONE (11:31)
[2024-03-05] MEDS ORDERED: Morphine 4 MG/ML VIAL ONE (13:21)
[2024-03-05] MEDS: Pantoprazole DR 40 MG TAB PO SCH (15:48)
[2024-03-05] MEDS: Apixaban 5 MG TAB ONE ×2 (18:50)
[2024-03-05] MEDS ORDERED: Sotalol HCl 80 MG TAB ONE ×2 (21:24→21:34)
[2024-03-05] MEDS ORDERED: Tamsulosin HCl 0.4 MG CAP ONE (21:34)
[2024-03-05] MEDS ORDERED: ALPRAZolam 0.25 MG TAB ONE (21:34)
[2024-03-06] MEDS ORDERED: D5 1/2 NS w/20 mEq KCL 1,000 ML BAG ONE (05:00)
[2024-03-06] MEDS ORDERED: Acetaminophen 325 MG TAB ONE (06:08)
[2024-03-06 06:13] LABS: #Basophils 0.04 10x3/uL (0.0-0.2); %Basophils 0.6 % (0.0-1.0); %Eosinophils 2.2 % (0.0-10.0); %Lymphocytes 23.6 % (21.0-51.0); %Monocytes 9.1 % (0.0-10.0); %Neutrophils 64.3 % (42.0-75.0); Hematocrit 27.6 % (42.0-52.0); Hemoglobin 9.1 g/dL (14.0-18.0); Mean Corpuscular Hemoglobin 30.4 pg (27.0-31.0); Mean Corpuscular Volume 92.3 fL (78.0-98.0); Mean Platelet Volume 10.1 fL (7.4-10.4); Platelet Count 151 10x3/uL (130-400); RBC Distribution Width 12.7 % (11.5-14.5); Red Blood Cell (RBC) Count 2.99 mill/uL (4.70-6.10)
[2024-03-06 07:08] LABS: ALT (SGPT) 19 U/L (8-55); AST (SGOT) 30 U/L (5-34); Albumin 2.5 g/dL (3.4-4.8); Alkaline Phosphatase 64 U/L (40-110); Anion Gap 12 mmol/L (10-20); BUN (Urea Nitrogen) 7 mg/dL (8.4-25.7); Bilirubin, Total 0.4 mg/dL (0.2-1.2); Calc. Creatinine Clearance 111 mL/min (70-130); Calcium 7.6 mg/dL (7.8-10.44); Carbon Dioxide 20 mmol/L (23-31); Chloride 111 mmol/L (98-107); Estimated GFR 98; Globulin 2.7 g/dL (2.4-3.5); Glucose 155 mg/dL (80-115); Potassium 4.2 mmol/L (3.5-5.1); Protein, Total 5.2 g/dL (5.8-8.1); Sodium 139 mmol/L (136-145)
[2024-03-06] MEDS ORDERED: Acetaminophen 325 MG TAB PO SCH (07:46)
[2024-03-06] MEDS ORDERED: Gabapentin 100 MG CAP PO SCH ×2 (09:00→10:12)
[2024-03-06] MEDS ORDERED: Apixaban 5 MG TAB ONE (09:16)
[2024-03-06] MEDS: dilTIAZem CD 120 MG CAP PO SCH (09:27)
[2024-03-06] MEDS: Lidocaine 4% Patch TD SCH (09:27)
[2024-03-06] MEDS: Apixaban 5 MG TAB ONE ×2 (09:28→20:47)
[2024-03-06] MEDS: Sotalol HCl 80 MG TAB PO SCH ×2 (09:29→20:42)
[2024-03-06] MEDS ORDERED: Isosorbide Mononitrate 30 MG ER.TAB PO SCH (10:17)
[2024-03-06] MEDS ORDERED: Methocarbamol 500 MG TAB ONE (11:51)
[2024-03-06] MEDS: Methocarbamol 500 MG TAB ONE (12:01)
[2024-03-06] MEDS: traMADol HCl 50 MG TAB PO PRN (12:01)
[2024-03-06] MEDS: Gabapentin 300 MG CAP PO SCH (12:01)
[2024-03-06] MEDS: Acetaminophen 500 MG TAB PO SCH (12:02)
[2024-03-06] MEDS: Magnesium Citrate 300 ML BOT PO SCH (13:35)
[2024-03-06] MEDS: Ibuprofen 600 MG TAB PO SCH (18:45)
[2024-03-06] MEDS: Senokot S 8.6-50 MG TAB PO SCH (20:44)
[2024-03-06] MEDS: Atorvastatin Calcium 40 MG TAB PO SCH (20:47)
[2024-03-07 07:42] LABS: #Basophils 0.05 10x3/uL (0.0-0.2); %Basophils 0.7 % (0.0-1.0); %Eosinophils 3.3 % (0.0-10.0); %Lymphocytes 26.3 % (21.0-51.0); %Monocytes 8.1 % (0.0-10.0); %Neutrophils 61.3 % (42.0-75.0); Hematocrit 28.7 % (42.0-52.0); Hemoglobin 9.6 g/dL (14.0-18.0); Mean Corpuscular HGB CONC 33.4 g/dL (32.0-36.0); Mean Corpuscular Volume 92.6 fL (78.0-98.0); Mean Platelet Volume 10.1 fL (7.4-10.4); Platelet Count 180 10x3/uL (130-400); RBC Distribution Width 12.6 % (11.5-14.5)
[2024-03-07 08:00] LABS: ALT (SGPT) 20 U/L (8-55); AST (SGOT) 29 U/L (5-34); Albumin 2.7 g/dL (3.4-4.8); Alkaline Phosphatase 66 U/L (40-110); Anion Gap 12 mmol/L (10-20); BUN (Urea Nitrogen) 10 mg/dL (8.4-25.7); Bilirubin, Total 0.6 mg/dL (0.2-1.2); Calc. Creatinine Clearance 104 mL/min (70-130); Calcium 8.1 mg/dL (7.8-10.44); Carbon Dioxide 23 mmol/L (23-31); Chloride 104 mmol/L (98-107); Estimated GFR 96; Glucose 130 mg/dL (80-115); Potassium 4.1 mmol/L (3.5-5.1); Protein, Total 5.7 g/dL (5.8-8.1); Sodium 135 mmol/L (136-145)
[2024-03-07] MEDS: Isosorbide Mononitrate 60 MG ER.TAB PO SCH (10:13)
[2024-03-07] MEDS: Gabapentin 300 MG CAP ONE (10:14)
[2024-03-07] MEDS: glipiZIDE XL 5 mg ER.TAB PO SCH (10:17)
[2024-03-07] MEDS: Methocarbamol 500 MG TAB ONE (11:46)
[2024-03-07] MEDS: Apixaban 5 MG TAB ONE ×2 (13:32→19:35)
[2024-03-07] MEDS: Transdermal Patch Removal TOP SCH (19:30)
[2024-03-08 08:55] LABS: #Basophils 0.05 10x3/uL (0.0-0.2); %Basophils 0.8 % (0.0-1.0); %Eosinophils 2.4 % (0.0-10.0); %Lymphocytes 23.1 % (21.0-51.0); %Monocytes 6.7 % (0.0-10.0); %Neutrophils 66.5 % (42.0-75.0); Hematocrit 29.7 % (42.0-52.0); Hemoglobin 9.9 g/dL (14.0-18.0); Mean Corpuscular HGB CONC 33.3 g/dL (32.0-36.0); Mean Corpuscular Hemoglobin 30.7 pg (27.0-31.0); Mean Corpuscular Volume 92.2 fL (78.0-98.0); Mean Platelet Volume 9.9 fL (7.4-10.4); Platelet Count 225 10x3/uL (130-400); RBC Distribution Width 12.7 % (11.5-14.5); Red Blood Cell (RBC) Count 3.22 mill/uL (4.70-6.10)
[2024-03-08] MEDS ORDERED: HYDROcodone/Acetaminophen 5/325 mg Tablet PO SCH (09:00)
[2024-03-08] MEDS: Apixaban 5 MG TAB ONE ×2 (09:03→22:02)
[2024-03-08 09:17] LABS: ALT (SGPT) 28 U/L (8-55); AST (SGOT) 34 U/L (5-34); Alkaline Phosphatase 68 U/L (40-110); Anion Gap 13 mmol/L (10-20); BUN (Urea Nitrogen) 14 mg/dL (8.4-25.7); Bilirubin, Total 0.7 mg/dL (0.2-1.2); Calc. Creatinine Clearance 98 mL/min (70-130); Calcium 8.5 mg/dL (7.8-10.44); Carbon Dioxide 21 mmol/L (23-31); Chloride 104 mmol/L (98-107); Estimated GFR 94; Globulin 3.3 g/dL (2.4-3.5); Glucose 137 mg/dL (80-115); Potassium 4.2 mmol/L (3.5-5.1); Protein, Total 6.3 g/dL (5.8-8.1); Sodium 134 mmol/L (136-145)
[2024-03-08] MEDS: HYDROcodone/Acetaminophen 5/325 mg Tablet PO PRN (12:39)
[2024-03-08] MEDS: Ketorolac Tromethamine 30 MG (1 mL) VIAL IVP PRN (12:41)
[2024-03-08] MEDS: Methocarbamol 500 MG TAB ONE (15:16)
[2024-03-08] MEDS: HYDROcodone/Acetaminophen 5/325 mg Tablet PO SCH (15:17)
[2024-03-08] MEDS: Acetaminophen 325 MG TAB PO SCH (15:41)
[2024-03-08] MEDS: Lidocaine 4% Patch ONE (15:42)
[2024-03-09 05:52] LABS: #Basophils 0.06 10x3/uL (0.0-0.2); %Basophils 0.9 % (0.0-1.0); %Eosinophils 2.5 % (0.0-10.0); %Lymphocytes 29.6 % (21.0-51.0); %Monocytes 8.3 % (0.0-10.0); %Neutrophils 58.2 % (42.0-75.0); Hematocrit 25.8 % (42.0-52.0); Hemoglobin 8.8 g/dL (14.0-18.0); Mean Corpuscular HGB CONC 34.1 g/dL (32.0-36.0); Mean Corpuscular Hemoglobin 31.3 pg (27.0-31.0); Mean Corpuscular Volume 91.8 fL (78.0-98.0); Mean Platelet Volume 9.5 fL (7.4-10.4); Platelet Count 199 10x3/uL (130-400); RBC Distribution Width 12.9 % (11.5-14.5); Red Blood Cell (RBC) Count 2.81 mill/uL (4.70-6.10)
[2024-03-09 06:15] LABS: ALT (SGPT) 34 U/L (8-55); AST (SGOT) 34 U/L (5-34); Albumin 2.5 g/dL (3.4-4.8); Alkaline Phosphatase 59 U/L (40-110); Anion Gap 10 mmol/L (10-20); BUN (Urea Nitrogen) 19 mg/dL (8.4-25.7); Bilirubin, Total 0.5 mg/dL (0.2-1.2); Calc. Creatinine Clearance 95 mL/min (70-130); Carbon Dioxide 24 mmol/L (23-31); Chloride 108 mmol/L (98-107); Estimated GFR 93; Globulin 2.9 g/dL (2.4-3.5); Glucose 129 mg/dL (80-115); Potassium 3.6 mmol/L (3.5-5.1); Protein, Total 5.4 g/dL (5.8-8.1); Sodium 138 mmol/L (136-145)
[2024-03-09] MEDS: Apixaban 5 MG TAB PO SCH (09:00)
[2024-03-09] MEDS: Apixaban 5 MG TAB ONE (09:04)
[2024-03-09] MEDS: Methocarbamol 500 MG TAB ONE ×2 (09:23→15:12)
[2024-03-09] MEDS: HYDROcodone/Acetaminophen 7.5/325 mg Tablet PO PRN (10:28)
[2024-03-09] MEDS ORDERED: Ipratropium/Albuterol 3 ML NEB NEB PRN (11:01)
[2024-03-09 16:51] VITALS: BP 131/73; TEMP 97.4
[2024-03-09] MEDS: Morphine 4 MG/ML VIAL SLOW IVP SCH (17:03)
== END 2024-03-09 05:59 | DRG 964 ==
LOC: ERS 12:50 → ERHOLD 15:21 → SURG A 18:07 → OBSVTOIN 03-03 09:49
PROVIDERS: ADMIT Surgery; ATTEND Surgery
DX: S87.01XA Crushing injury of right knee, initial encounter (principal); E87.1 Hypo-osmolality and hyponatremia; T79.6XXA Traumatic ischemia of muscle, initial encounter; S22.079A Unspecified fracture of T9-T10 vertebra, initial encounter for closed fracture; E11.9 Type 2 diabetes mellitus without complications; I10 Essential (primary) hypertension; E78.5 Hyperlipidemia, unspecified; I48.0 Paroxysmal atrial fibrillation; I25.10 Atherosclerotic heart disease of native coronary artery without angina pectoris; N40.0 Benign prostatic hyperplasia without lower urinary tract symptoms; Z95.0 Presence of cardiac pacemaker; Z79.01 Long term (current) use of anticoagulants; Z90.49 Acquired absence of other specified parts of digestive tract; V88.7XXA Person injured in collision between other specified motor vehicle, nontraffic, initial encounter; Y93.89 Activity, other specified; Y92.89 Other specified places as the place of occurrence of the external cause; Z79.82 Long term (current) use of aspirin; Z79.899 Other long term (current) drug therapy; Z79.84 Long term (current) use of oral hypoglycemic drugs; S83.281A Other tear of lateral meniscus, current injury, right knee, initial encounter
CPT/HCPCS: 36415; 36416; 70450; 71045; 71260; 72125; 72170; 74177; 80048; 80053; 82550; 83690; 84484; 85025; 85610; 85730; 86850; 86900; 86901; 90715; 93005; 93010; 93970; 94760; 96375; 96376; G0378; G0390; J1885; J2272; J2405; J3010; J3480; J3490; J7620